=== PATIENT | male | born 1995 | race Caucasian/White ===

== ENCOUNTER 2016-07-16 09:02 | Emergency (ER) | payer OTHER ==
[2016-07-16 09:11] VITALS: BP 136/77
[2016-07-16 09:43] LABS: RAPID STREP SCREEN REAGENT QC YELLOW (YELLOW)
--- NOTE | 2016-07-16 12:08 | ED Physician Documentation ---
History of Present Illness - Stated complaint Stated Complaint: FEVER - Chief complaint Chief Complaint: Fever - History obtained from History obtained from: Patient - History of Present Illness Timing: Yesterday (Previously healthy 20-year-old gentleman with flank pain bilaterally for a week, now sore throat for 2 days and fever since yesterday with myalgias since yesterday. No nausea or abdominal pain. Fever was up to 103 at home. No recent travel, did go to [facility] but that was a month and a half ago.) Review of Systems Constitutional: reports: Fever, Chills, Myalgias, Fatigue, Sweats Ears: reports: Ear pain (right) Nose: denies: Rhinorrhea / runny nose Throat: reports: Sore throat Respiratory: denies: Dyspnea, Cough GI: denies: Abdominal Pain, Nausea, Constipation, Diarrhea PD PAST MEDICAL HISTORY - Past Surgical History Past Surgical History: Yes - Present Medications Home Medications: Ambulatory Orders Medication Instructions Recorded Confirmed Amoxicillin 500 mg PO TID #30 capsule 07/16/16 HYDROcod/ACETAM 5/325 [[place] 5/325] 1 - 2 ea PO Q6H PRN #10 tablet 07/16/16 - Allergies Allergies/Adverse Reactions: Allergies Allergy/AdvReac Type Severity Reaction Status Date / Time No Known Drug Allergies Allergy Verified 12/20/14 22:08 - Social History Does the pt smoke?: Yes Smoking Status: Current every day smoker Does the pt drink ETOH?: No Does the pt have substance abuse?: No - Immunizations Immunizations are current?: Yes PD ED PE NORMAL - Vitals Vital signs reviewed: Yes - General General: Alert and oriented X 3, No acute distress - HEENT HEENT: PERRL, EOMI, Other (OP Red, MIld ROM) - Neck Neck: Supple, no meningeal sign, No bony TTP - Cardiac Cardiac: RRR, No murmur - Respiratory Respiratory: No respiratory distress, Clear bilaterally - Abdomen Abdomen: Soft, Non tender - Back Back: No CVA TTP - Derm Derm: No rash - Neuro Neuro: Alert and oriented X 3, Normal speech - Psych Psych: Normal mood, Normal affect Results - Vitals Vitals: Vital Signs - 24 hr 07/16/16 07/16/16 09:09 11:49 Temperature 37.2 C 37.5 C Heart Rate 94 Respiratory 18 Rate Blood Pressure 136/77 H O2 Saturation 100 Oxygen O2 Source Room air - Labs Labs: Laboratory Tests 07/16/16 07/16/16 07/16/16 09:25 12:08 12:09 Urine Color DARK YELLOW Urine Clarity CLEAR Urine pH 5.5 Ur Specific [place] 1.025 Urine Protein NEGATIVE Urine Glucose (UA) NEGATIVE Urine Ketones NEGATIVE Urine Occult Blood NEGATIVE Urine Nitrite NEGATIVE Urine Bilirubin NEGATIVE Urine Urobilinogen 0.2 (NORMAL) Ur Leukocyte Esterase NEGATIVE Ur Microscopic Review NOT INDICATED Urine Culture Comments NOT INDICATED Influenza A (Rapid) Negative Influenza B (Rapid) Negative Influenza Types A,B Ag - Group A Strep Rapid Negative PD MEDICAL DECISION MAKING - ED course ED course: Well-appearing young man with flulike illness for one day, also mild right otitis media. No evidence of sepsis. Departure - Departure Disposition: Home, Self Care Clinical Impression: Right otitis media Qualifiers: Otitis media type: suppurative Chronicity: acute Recurrence: not specified as recurrent Spontaneous tympanic membrane rupture: without spontaneous rupture Qualified Code(s): H66.001 - Acute suppurative otitis media without spontaneous rupture of ear drum, right ear Fever Qualifiers: Fever type: unspecified Qualified Code(s): R50.9 - Fever, unspecified Condition: Good Record reviewed to determine appropriate education?: Yes Instructions: ED Fever Control, ED Otitis Media Acute Adult Prescriptions: Amoxicillin 500 mg PO TID #30 capsule HYDROcod/ACETAM 5/325 [[place] 5/325] 1 - 2 ea PO Q6H PRN #10 tablet PRN Reason: Pain Comments: Call your doctor to arrange a follow up appointment. Make the next available appointment. In the interim return anytime if worse or if new symptoms develop. Your blood pressure was elevated today on check in to the emergency department. This does not mean that you have hypertension, it is a common phenomenon to check into the emergency department and have elevated blood pressure. I recommend that you see your primary care physician within the week to have it rechecked when you're feeling better. Forms: Activity restrictions
[2016-07-16 12:18] LABS: BILIRUBIN,URINE NEGATIVE (NEGATIVE); PH,URINE 5.5 PH (5.0-7.5)
[2016-07-16 12:21] LABS: UA CHARGE (STRIP ONLY) YES; UR CULTURE IF IND NOT INDICATED
[2016-07-16] MEDS ORDERED: AMOXICILLIN 250 MG CAPSULE PO STA (12:34)
[2016-07-16] MEDS ORDERED: AMOXICILLIN 250 MG CAPSULE PO ONE (12:35)
[2016-07-16] MEDS ORDERED: HYDROcod/ACETAM 5/325 MG TABLET ONE (12:36)
[2016-07-16] MEDS ORDERED: HYDROcod/ACETAM 5/325 MG TABLET PO STA (12:37)
== END 2016-07-16 12:42 | disposition home or self-care (01) ==
LOC: ED 09:02
DX: H66.001 Acute suppurative otitis media without spontaneous rupture of ear drum, right ear (principal); R50.9 Fever, unspecified; R03.0 Elevated blood-pressure reading, without diagnosis of hypertension; F17.200 Nicotine dependence, unspecified, uncomplicated
CPT/HCPCS: 81003; 87070; 87275; 87276; 87430; 99283; A9270; 81001; 87086

== ENCOUNTER 2018-05-01 20:39 | Emergency (ER) | payer OTHER ==
--- NOTE | 2018-05-01 22:40 | ED Physician Documentation ---
PD HPI HEADACHE - Stated complaint Stated Complaint: STRONG - Chief complaint Chief Complaint: Neuro - History obtained from History obtained from: Patient - History of Present Illness Timing - onset: Enter time (18:00) Timing - duration: Hours Timing - details: Gradual onset Worst headache ever?: No: Worst headache ever? Location: Front, Right, Left Quality: Throbbing, Aching Worsened by: Light - Additional information Additional information: c/o bifrontal headache since 6 PM. No relief with imitrex. He has not had CTH in the past for these headaches but was only recently told he had migraine headach es Review of Systems Constitutional: denies: Fever Eyes: reports: Photophobia (mild). denies: Loss of vision, Decreased vision Skin: denies: Rash Musculoskeletal: denies: Neck pain, Back pain Neurologic: reports: Headache. denies: Generalized weakness, Focal weakness, Numbness PD PAST MEDICAL HISTORY - Past Medical History Past Medical History: Yes Cardiovascular: Hypertension Neuro: Migraines - Past Surgical History Past Surgical History: Yes - Present Medications Home Medications: Ambulatory Orders Medication Instructions Recorded Confirmed Amoxicillin 500 mg PO TID #30 capsule 07/16/16 HYDROcod/ACETAM 5/325 [[place] 5/325] 1 - 2 ea PO Q6H PRN #10 tablet 07/16/16 Oxycodone HCl/Acetaminophen 1 - 2 each PO Q6H PRN #14 tablet 05/02/18 [Percocet 5-325 mg Tablet] - Allergies Allergies/Adverse Reactions: Allergies Allergy/AdvReac Type Severity Reaction Status Date / Time No Known Drug Allergies Allergy Verified 05/01/18 20:46 - Social History Does the pt smoke?: Yes Smoking Status: Current every day smoker Does the pt drink ETOH?: No Does the pt have substance abuse?: No - Immunizations Immunizations are current?: Yes PD ED PE NORMAL - Vitals Vital signs reviewed: Yes - General General: Alert and oriented X 3, Well developed/nourished, Other (appears uncomfortable) - HEENT HEENT: PERRL, EOMI - Neck Neck: Supple, no meningeal sign - Cardiac Cardiac: RRR, No murmur - Respiratory Respiratory: No respiratory distress, Clear bilaterally - Neuro Neuro: Alert and oriented X 3, 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, No motor deficit, No sensory deficit, Normal speech Results - Vitals Vitals: Vital Signs - 24 hr 05/01/18 05/01/18 05/02/18 20:43 23:15 00:15 Temperature 36.8 C 36.6 C Heart Rate 82 73 74 Respiratory 18 18 16 Rate Blood Pressure 171/112 H 157/102 H 152/101 H O2 Saturation 99 100 98 Oxygen O2 Source Room air - Rads (name of study) CT head Radiology: Prelim report reviewed, See rad report PD MEDICAL DECISION MAKING - ED course Complexity details: reviewed results, re-evaluated patient, considered differential, d/w patient Departure - Departure Disposition: 01 Home, Self Care Clinical Impression: Migraine Condition: Good Instructions: ED Headache Migraine, NARCOTIC, Oral Follow-Up: VICTORIANO ARRIAGA MD [Primary Care Provider] - Prescriptions: Oxycodone HCl/Acetaminophen [Percocet 5-325 mg Tablet] 1 - 2 each PO Q6H PRN #14 tablet PRN Reason: pain Discharge Date/Time: 05/02/18 00:24
[2018-05-01] MEDS ORDERED: KETOROLAC 60 MG/2 ML VIAL IM STA (22:55)
--- NOTE | 2018-05-01 23:57 | CT Report ---
Reason: headache Procedure Date: 05/01/2018 Accession Number: [id number] / [id number] Procedure: CT - HEAD WO CPT Code: FULL RESULT: EXAM: CT HEAD EXAM DATE: 05/01/2018 11:43 PM. CLINICAL HISTORY: Headache. COMPARISON: None. TECHNIQUE: Multiaxial CT images were obtained from the foramen magnum to the vertex. Reformats: Sagittal and coronal. IV contrast: None. In accordance with CT protocol optimization, one or more of the following dose reduction techniques were utilized for this exam: automated exposure control, adjustment of mA and/or KV based on patient size, or use of iterative reconstructive technique. FINDINGS: Parenchyma: No intraparenchymal hemorrhage. No evidence of mass, midline shift, or CT findings of infarction. Fried-white differentiation is distinct. Extraaxial Spaces: Normal for age. No subdural or epidural collections identified. Ventricles: Normal in size and position. Sinuses and Orbits: Imaged paranasal sinuses, orbits, and mastoids show no significant abnormality. Bones: No evidence of fracture or calvarial defect. Other: Left occipital scalp injury. IMPRESSION: No acute or focal intracranial abnormality. RADIA
[2018-05-02] MEDS ORDERED: oxyCODONE/ACET 5/325 Prepack 4 PO STA (00:17)
[2018-05-02 00:18] VITALS: BP 152/101
== END 2018-05-02 00:24 | disposition home or self-care (01) ==
LOC: ED 20:39
DX: G43.909 Migraine, unspecified, not intractable, without status migrainosus (principal); I10 Essential (primary) hypertension; F17.200 Nicotine dependence, unspecified, uncomplicated
CPT/HCPCS: 70450; 96372; 99283

== ENCOUNTER 2019-03-01 13:09 | Emergency (ER) | payer OTHER ==
[2019-03-01] MEDS ORDERED: KETOROLAC 60 MG/2 ML VIAL IM STA (14:29)
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
[2019-03-01 15:01] VITALS: BP 161/103
== END 2019-03-01 14:59 | disposition home or self-care (01) ==
LOC: ED 13:09
DX: G43.909 Migraine, unspecified, not intractable, without status migrainosus (principal); R07.9 Chest pain, unspecified; M54.2 Cervicalgia; Y04.2XXA Assault by strike against or bumped into by another person, initial encounter; Y99.0 Civilian activity done for income or pay; I10 Essential (primary) hypertension; F17.200 Nicotine dependence, unspecified, uncomplicated
CPT/HCPCS: 93005; 96372; 99283; 99284

== ENCOUNTER 2019-04-04 13:20 | Emergency (ER) | payer OTHER ==
--- NOTE | 2019-04-04 13:41 | ED Physician Documentation ---
History of Present Illness - Stated complaint Stated Complaint: CHEST PX - Chief complaint Chief Complaint: MHE - History obtained from History obtained from: Patient - History of Present Illness Timing: How many weeks ago (2) Pain level max: 4 Pain level now: 0 - Additonal information Additional information: 23-year-old male presents the emergency department stating he has had increased anxiety for the past 2 weeks. He is currently quitting smoking. He states he has intermittent chest pain for the past 2 weeks as well. States it feels like a tightness and like somebody is sitting on his chest. States that his blood pressure has been poorly controlled over the past 2 weeks, recently started propranolol. No history of acute coronary syndrome or early cardiac disease in the family. He does have a history of anxiety and PTSD. Is not currently on anything for this. Patient saw his counselor today who sent him here for his chest pain. Review of Systems Ten Systems: 10 systems reviewed and negative Constitutional: denies: Fever, Chills Nose: denies: Rhinorrhea / runny nose, Congestion Respiratory: denies: Cough GI: denies: Nausea, Vomiting, Diarrhea Skin: denies: Rash Musculoskeletal: denies: Neck pain, Back pain Neurologic: denies: Headache PD PAST MEDICAL HISTORY - Past Medical History Past Medical History: Yes Cardiovascular: Hypertension Neuro: Migraines - Past Surgical History Past Surgical History: Yes - Present Medications Home Medications: Ambulatory Orders Medication Instructions Recorded Confirmed Amoxicillin 500 mg PO TID #30 capsule 07/16/16 HYDROcod/ACETAM 5/325 [[place] 5/325] 1 - 2 ea PO Q6H PRN #10 tablet 07/16/16 Oxycodone HCl/Acetaminophen 1 - 2 each PO Q6H PRN #14 tablet 05/02/18 [Percocet 5-325 mg Tablet] - Allergies Allergies/Adverse Reactions: Allergies Allergy/AdvReac Type Severity Reaction Status Date / Time No Known Drug Allergies Allergy Verified 04/04/19 13:24 - Social History Does the pt smoke?: Yes Smoking Status: Current every day smoker Does the pt drink ETOH?: No Does the pt have substance abuse?: No - Immunizations Immunizations are current?: Yes PD ED PE NORMAL - Vitals Vital signs reviewed: Yes - General General: Alert and oriented X 3, No acute distress - HEENT HEENT: Moist mucous membranes, Pharynx benign - Neck Neck: Supple, no meningeal sign - Cardiac Cardiac: RRR, No murmur, Strong equal pulses - Respiratory Respiratory: No respiratory distress, Clear bilaterally - Abdomen Abdomen: Soft, Non tender, Non distended - Derm Derm: Warm and dry - Extremities Extremities: No edema, No calf tenderness / cord - Neuro Neuro: Alert and oriented X 3 Results - Vitals Vitals: Vital Signs - 24 hr 04/04/19 04/04/19 04/04/19 13:24 13:52 14:30 Temperature 36.8 C Heart Rate 61 59 L 58 L Respiratory 17 16 16 Rate Blood Pressure 171/97 H 142/87 H 131/81 H O2 Saturation 98 97 96 Oxygen O2 Source Room air - EKG (time done) 1332 Rate: Rate (enter#) (62) Rhythm: NSR [place]: Normal Intervals: Normal [place] QRS: Normal Ischemia: Normal ST segments - Labs Labs: Laboratory Tests 04/04/19 04/04/19 04/04/19 13:55 13:55 13:55 WBC 8.4 RBC 4.73 Hgb 15.1 Hct 42.7 MCV 90.3 MCH 31.9 H MCHC 35.4 RDW 11.8 L Plt Count 302 MPV 9.1 Neut # (Auto) 3.9 Lymph # (Auto) 3.3 [place] # (Auto) 0.9 Eos # (Auto) 0.2 Baso # (Auto) 0.0 Absolute Nucleated RBC 0.00 Nucleated RBC % 0.0 Sodium 138 Potassium 4.1 Chloride 102 Carbon Dioxide 26 Anion Gap 10.0 BUN 17 Creatinine 1.0 Estimated GFR (MDRD) 92 Glucose 94 Calcium 9.3 Total Bilirubin 0.6 AST 15 ALT 31 Alkaline Phosphatase 73 Troponin I High Sens < 2.3 L Total Protein 8.0 Albumin 4.7 Globulin 3.3 Albumin/Globulin Ratio 1.4 Lipase 26 - Rads (name of study) cxr Radiology: Prelim report reviewed, EMP read contemporaneously, See rad report (normal) PD MEDICAL DECISION MAKING - ED course Complexity details: reviewed results, re-evaluated patient, considered differential, d/w patient, d/w family ED course: Patient's symptoms resolved in the emergency department with Xanax. Appears to be anxiety related. Does not appear to be consistent with acute coronary syndrome at this time. No acute findings on EKG, chest x-ray or laboratory testing. We will have him follow-up with his doctor for Antianxiety medications. Patient counseled regarding signs and symptoms for which I believe and urgent re-evaluation would be necessary. Patient with good understanding of and agreement to plan and is comfortable going home at this time This document was made in part using voice recognition software. While efforts are made to proofread this document, sound alike and grammatical errors may occur. Departure - Departure Disposition: Home, Self Care Clinical Impression: Anxiety Chest pain Qualifiers: Chest pain type: unspecified Qualified Code(s): R07.9 - Chest pain, unspecified Condition: Good Instructions: ED Panic Attack Follow-Up: EDOUARD MCCALL MD [Primary Care Provider] - Within 1 week Comments: Return if you worsen. Your testing is normal today. Follow-up with your doctor for further care. You should talk to your doctor about anxiety medication as well. Discharge Date/Time: 04/04/19 14:50
[2019-04-04] MEDS ORDERED: ALPRAZolam 0.25 MG TABLET PO STA (13:51)
--- NOTE | 2019-04-04 13:58 | XRAY Report ---
Reason: Chest Pain Procedure Date: 04/04/2019 Accession Number: [id number] / [id number] Procedure: XR - Chest 1 View X-Ray CPT Code: 03196 Final Report FULL RESULT: EXAM: CHEST RADIOGRAPHY EXAM DATE: 04/04/2019 01:51 PM. CLINICAL HISTORY: Chest Pain. COMPARISON: None. TECHNIQUE: 1 view. FINDINGS: Lungs/Pleura: Mild interstitial prominence. No localized infiltrate, consolidation, effusion, or pneumothorax. Mediastinum: Overall heart size within normal limits for AP technique. Upper lobe vessels not distended. Other: None. IMPRESSION: Mild interstitial prominence. RADIA
[2019-04-04 14:00] LABS: BASOPHILS % (AUTO) 0.5 %; EOSINOPHILS # (AUTO) 0.2 10^3/uL (0.0-0.7); HGB - HEMOGLOBIN 15.1 g/dL (14.0-18.0); LYMPHOCYTES # (AUTO) 3.3 10^3/uL (1.5-3.5); LYMPHOCYTES % (AUTO) 39.2 %; MEAN CORPUSCULAR HEMOGLOBIN 31.9 pg (27.0-31.0); MEAN CORPUSCULAR HGB CONC 35.4 g/dL (32.0-36.0); MEAN CORPUSCULAR VOLUME 90.3 fL (80.0-94.0); MEAN PLATELET VOLUME 9.1 fL (7.4-11.4); MONOCYTES # (AUTO) 0.9 10^3/uL (0.0-1.0); NEUTROPHILS # (AUTO) 3.9 10^3/uL (1.5-6.6); NEUTROPHILS % (AUTO) 47.1 %; PLT - PLATELET COUNT 302 10^3/uL (130-450); RED BLOOD COUNT 4.73 10^6/uL (4.70-6.10); RED CELL DISTRIBUTION WIDTH 11.8 % (12.0-15.0); WHITE BLOOD COUNT 8.4 x10^3/uL (4.8-10.8)
[2019-04-04 14:15] LABS: ALBUMIN 4.7 g/dL (3.2-5.5); ALBUMIN/GLOBULIN RATIO 1.4 (1.0-2.2); BILIRUBIN,TOTAL 0.6 mg/dL (0.2-1.0); CALCIUM 9.3 mg/dL (8.5-10.3)
[2019-04-04 14:40] VITALS: BP 131/81
== END 2019-04-04 14:50 | disposition home or self-care (01) ==
LOC: ED 13:20
DX: F41.9 Anxiety disorder, unspecified (principal); R07.89 Other chest pain; I10 Essential (primary) hypertension; F17.200 Nicotine dependence, unspecified, uncomplicated
CPT/HCPCS: 36415; 71045; 80053; 83690; 84484; 85025; 93005; 99284; A9270